=== PATIENT | male | born 1995 | race Caucasian/White ===

== ENCOUNTER 2023-09-15 12:46 | Day surgery (SDC) | payer OTHER, SELFPAY ==
--- NOTE | 2023-09-15 | PATH_ITS ---
[facility] Accession Number: [id number] No. of containers..07 Tissue . 01 Material submitted: . PART A: esophagus, E-G Junction - ESOPHAGUS, GEJ PART B: duodenum - DUODENUM PART C: gastrointestinal site - GASTRIC BODY PART D: gastrointestinal site - ANTRUM PART E: colon - TRANSVERSE COLON POLYPS PART F: rectosigmoid junction - RECTO-SIGMOID PART G: rectum - RECTAL POLYPS . 01 Diagnosis: Part A: ESOPHAGUS, GEJ: Gastroesophageal junction mucosa with changes consistent with reflux. No goblet cell metaplasia or dysplasia identified. . Part B: DUODENUM: Duodenal mucosa with no diagnostic alterations. No active inflammation and no evidence of celiac disease. . Part C: GASTRIC BODY: Gastric mucosa with mild chronic inflammation. No Helicobacter organisms identified. No intestinal metaplasia, dysplasia, or malignancy identified. . Part D: ANTRUM: Gastric mucosa with mild chronic inflammation. No Helicobacter organisms identified. No intestinal metaplasia, dysplasia, or malignancy identified. . Part E: TRANSVERSE COLON POLYPS: Sessile serrated adenomas. Hyperplastic polyps. . Part F: RECTO-SIGMOID: Colonic mucosa with focal mild active inflammation. No granulomas, dysplasia, or malignancy identified. See comment. . Specimen Comments: The histologic features suggest a differential including acute self-limited (infectious versus drug-induced) colitis or bowel preparation artifact. . Part G: RECTAL POLYPS: Hyperplastic polyps. [facility] 09/19/2023 1501 Local . 01 Comment: . . 01 Electronically signed: . Yamil Serra MD, Pathologist NPI- [id number] . 01 Gross description: . A. Received in formalin with two patient identifiers and GEJ, are three epstein soft tissue fragments, 0.1 to 0.2 cm in greatest dimension. Submitted in A1. . B. Received in formalin with two patient identifiers and duodenum, are two epstein soft tissue fragments, 0.2 to 0.3 cm in greatest dimension. Submitted in B. . C. Received in formalin with two patient identifiers and gastric body, are two epstein soft tissue fragments, 0.1 to 0.2 cm in greatest dimension. Submitted in C1. . D. Received in formalin with two patient identifiers and antrum, are two epstein soft tissue fragments, 0.2 to 0.4 cm in greatest dimension. Submitted in D1. . E. Received in formalin with two patient identifiers and transverse colon polyp, are multiple epstein soft tissue fragments, the largest two measuring 0.8 x 0.7 x 0.4 cm to 0.6 x 0.5 x 0.4 cm. The largest fragments are inked and bisected in E1. The remaining fragments are filtered and submitted in E2. . F. Received in formalin with two patient identifiers and rectosigmoid biopsy, are two epstein soft tissue fragments, 0.2 to 0.3 cm in greatest dimension. Submitted in F1. . G. Received in formalin with two patient identifiers and rectal polyps, are two epstein soft tissue fragments, 0.2 to 0.4 cm in greatest dimension. Submitted in G1. ([id number]) /MRV 09/19/2023 1501 Local . 01 Microscopic: . Part A: GEJ: An ABPAS stain was performed to evaluate for goblet cell metaplasia and is negative. The control stains appropriately. . Parts C, D: An immunohistochemical stain was performed to evaluate for Helicobacter organisms and is negative. The control stains appropriately. * This test was developed and its performance characteristics determined by [facility]. It has not been cleared or approved by the U.S. Food and Drug Administration. The FDA has determined that such clearance or approval is not necessary. This test is used for clinical purposes. It should not be regarded as investigational or for research. . 01 Pathologist provided ICD-10: D12.3, K21.0, K29.50, K52.9, K63.5 . 01 CPT . 529519, 491316, 460180, 813872, 952443, 906661, 167930, 673690, [id number] Specimen Comment: A courtesy copy of this report has been sent to [phone] Performed at: [address] [facility], [place], [place] [id number] MD Yamil Serra MD Phone: [phone]
[2023-09-15 13:41] VITALS: BP 116/65; PULSE 73; RESP 95; TEMP 37
[2023-09-15] MEDS: LACTATED RINGERS 1,000 ML 42 ML IV (13:47)
--- NOTE | 2023-09-15 14:05 | P.HP_ITS ---
History of Present Illness History of Present Illness Date Patient Seen: 09/15/23 Time Patient Seen: 14:05 Chief complaint: EGD/Colonoscopy Narrative: 27-year-old male here for EGD colonoscopy. I reviewed the note by Mir Urias from August. He has not seen any blood per rectum for about a month or so. He indicates his weight fluctuates up and down. He has intermittent nausea vomiting that has not been well explained in addition to what is discussed in the note. [facility] Social History Smoking Status: Never smoker alcohol intake: former Meds Home Medications and Allergies Home Medications Medication Instructions Recorded Confirmed Type bupropion HCl 100 mg tablet 450 mg PO DAILY 09/15/23 09/15/23 History omeprazole 20 mg capsule,delayed 20 mg PO BID 09/15/23 09/15/23 History release ondansetron HCl 4 mg tablet 4 mg PO Q8H PRN Nausea And Vomiting 09/15/23 09/15/23 History sertraline 100 mg tablet (Zoloft) 150 mg PO DAILY 09/15/23 09/15/23 History trazodone 200 mg PO BEDTIME 09/15/23 09/15/23 History Allergies Allergy/AdvReac Type Severity Reaction Status Date / Time No Known Drug Allergies Allergy Verified 09/15/23 13:36 Review of Systems Review of Systems ROS: Yes All systems reviewed with the patient and are negative except as othe rwise documented Exam Vital Signs (past 8 hours): - 09/15/23 13:41 Temperature 98.6 F Pulse Rate 73 Respiratory Rate 95 H Blood Pressure 116/65 Oxygen Delivery Method Room Air Oxygen Delivery Method Room Air Const General: cooperative HENMT Head: normal to inspection Eyes General: appearance normal, both eyes and all related structures Neck Neck: normal visual inspection Chest Chest: normal inspection of the chest Resp Effort & Inspection: normal respiratory effort Cardio Rate: regular rate GI Inspection: normal to inspection Skin General: no rashes or lesions noted Neuro General: patient alert and patient awake Extrem General: normal to inspection and no pedal edema Psych Appearance: grossly normal Assessment & Plan Assessment & Plan narrative: 27-year-old male with fluctuating weight, history of esophagitis, history of gastric ulcers, history of rectal bleeding. EGD and colonoscopy are pursued today.
--- NOTE | 2023-09-15 14:07 | PM.PREOP ---
Pre-operative Note Interval Note History & Physical reviewed/Exam performed by Physician: Yes Changes to H&P: No ASA Class (for procedural sedation): II
--- NOTE | 2023-09-15 16:02 | P.OP.EGD&C_ITS ---
Operative Date/Time/Diagnoses Date of procedure: 09/15/23 Time of procedure: 16:02 Pre-op diagnosis: History of esophagitis, gastric ulcers, fluctuating weight, rectal bleeding. Post-op diagnosis: same Procedure & Clinicians Study performed: EGD with biopsies and colonoscopy with biopsies plus hot and cold snare polypectomies Same procedure as scheduled: Yes Indications: History of esophagitis, gastric ulcers, fluctuating weight, rectal bleeding. Surgeon: Wilmar Vásquez Procedure Notes SCOAP/Timeout: Done Procedure in detail: After the risks and benefits were explained, written and verbal informed consent was obtained. The patient was brought into the procedure room and placed into the left lateral decubitus position. Please see anesthesia note for sedation details. The scope was introduced into the mouth through the bite block and advanced under direct visualization to the 2nd portion of the duodenum. The scope was slowly withdrawn carefully examining the mucosa for any defects or lesions. Retroflexed views were accomplished in the stomach. The stomach was decompressed, the scope was then removed from the patient who tolerated the procedure well. The patient was then turned around. A digital rectal examination was accomplished. The scope was introduced into the rectum and advanced to the cecum as identified by the appendiceal orifice and ileocecal valve. The terminal ileum was interrogated. The scope was slowly withdrawn to carefully examine the mucosa for any defects or lesions. Multiple direct views were made through the dentate line for exclusion of pathology. The colon was dec ompressed. The scope was removed from the patient who tolerated the procedure well. Adult colonoscope Bowel prep adequate Scope withdrawal time: 20 minutes Sedation minutes: 56 Complications: none Impression: 1. Duodenal: This was visually normal from the bulb through to the 2nd portion. Biopsies were taken from D2 for exclusion of celiac. 2. Stomach: No ulcers no outlet obstruction no mass lesions. Mild gastropathy was appreciated in the antrum and biopsies were therefore taken for exclusion of H pylori. There was some streaky erythema in the gastric body and a separate set of biopsies was taken from this location for histopathologic analysis. Otherwise retroflexed views of the LES were unremarkable. 3. Esophagus: The squamocolumnar junction correlated with the top of the gastric folds. GEJ was at 39 cm from the incisors. There was no evidence of any acute active erosive esophagitis however there was some diffuse nodularity right at the Z-line which did seem to correspond with the GE junction. A couple of these nodules were biopsied for histopathologic analysis. The remainder of the esophagus appeared visually unremarkable. 4. Terminal ileum this was visually normal. 5. Colon: There was no evidence of any active proctitis nor colitis. However there was streaky erythema that appeared to be consistent with prior ulceration and healing with associated mucosal hyperemia. Couple of these locations were biopsied for histopathologic analysis. No significant hemorrhoidal cushions were identified. No diverticulosis. There were a couple of diminutive polyps in the rectum that were removed with cold snare and submitted for pathology. In the transverse colon there were 3 polyps ranging in size from 8 to roughly 12 mm. These were all sessile and appeared to be hyperplastic versus sessile serrated. They were removed with hot snare polypectomy. Endoscopic diagnosis 1. Gastropathy 2. Irregular/nodular Z-line 3. Colon polyps 4. Streaky rectosigmoid erythema suggestive of reactive hyperemia. Post-procedure Plan for aftercare: 1. Await histology. 2. Continue anti-reflux therapy for now. 3. Surveillance endoscopy will be considered contingent on pathology results. Disposition: PACU
[2023-09-15 16:05] VITALS: BP 90/61; PULSE 58; RESP 12; TEMP 36.6; O2SAT 96
[2023-09-15 16:09] VITALS: BP 95/45; PULSE 52; RESP 16; O2SAT 95
[2023-09-15 16:14] VITALS: BP 103/64; PULSE 65; RESP 10; O2SAT 96
[2023-09-15 16:23] VITALS: BP 107/45; PULSE 65; RESP 16; TEMP 36.7; O2SAT 96
== END 2023-09-15 16:44 | disposition home or self-care (01) ==
PROVIDERS: Referring Provider Internal Medicine Gastroenterology; Visit Provider Internal Medicine Gastroenterology
PROC: 0DJ08ZZ Inspection of Upper Intestinal Tract, Via Natural or Artificial Opening Endoscopic (ICD-10-PCS; CPT 45385; principal; 2023-09-15 14:00)
PROC: 0DJD8ZZ Inspection of Lower Intestinal Tract, Via Natural or Artificial Opening Endoscopic (ICD-10-PCS; CPT 45378; 2023-09-15 14:00)
DX: K62.5 Hemorrhage of anus and rectum (principal); R63.4 Abnormal weight loss; Z87.11 Personal history of peptic ulcer disease; Z87.19 Personal history of other diseases of the digestive system; K31.9 Disease of stomach and duodenum, unspecified; K29.50 Unspecified chronic gastritis without bleeding; D12.3 Benign neoplasm of transverse colon
CPT/HCPCS: 45385; 45380; 43239; J2704